=== PATIENT | female | born 1965 | race Caucasian/White ===

== ENCOUNTER 2018-05-25 16:45 | Emergency (ER) | payer OTHER ==
--- NOTE | 2018-05-25 17:21 | EDM.PDOC ---
ED HPI GENERAL MEDICAL PROBLEM - General Chief Complaint: Lower Extremity Injury/Pain Stated Complaint: L LEG PAIN/POSS BLOOD CLOT Time Seen by Provider: 05/25/18 17:07 Source of Information: Reports: Patient, RN Notes Reviewed History Limitations: Reports: No Limitations - History of Present Illness INITIAL COMMENTS - FREE TEXT/NARRATIVE: Patient is a 52 year old female who presents to the ED for the evaluation of a possible blood clot. The patient states that she has had a DVT in her Left leg around 28 years ago. She was on Coumadin for 2 years due to this. She has since stopped taking the Coumadin and is only taking a baby aspirin. She states that she is from [place], and is in [place] to visit her son. She notes that she has been traveling long hours in the car, up to 8-10 hours/day. She has been trying to do some calf pumps and exercises to prevent DVT but has not been able to do as many or as much as she'd like. Her left leg is swollen and painful in her calf and into the back of her knee. She denies any chest pain or shortness of breath. She states that she does not have a clotting disorder, or that she has never been tested for one. 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 CASH REGISTERS: tramadol Left Lower Leg Pain Score (Numeric/FACES): 10 - Related Data Allergies Allergy/AdvReac Type Severity Reaction Status Date / Time azithromycin [From Zithromax] Allergy Swelling Verified 05/25/18 17:14 cefaclor [From Ceclor] Allergy Swelling Verified 05/25/18 17:14 Cephalosporins Allergy Swelling Verified 05/25/18 17:14 Sulfa (Sulfonamide Allergy Swelling Verified 05/25/18 17:14 Antibiotics) Home Meds: Home Meds Apixaban [Eliquis] 5 mg PO BID #60 tablet 05/25/18 [Rx] Ondansetron [Zofran ODT] 4 mg PO Q6H PRN #28 tab.dis 05/25/18 [Rx] Past Medical History Cardiovascular History: Reports: Blood Clots/VTE/DVT, Hypertension Respiratory History: Reports: Asthma Gastrointestinal History: Reports: Cholelithiasis, GERD 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: Other (See Below) Other CRUSHER AND 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 OPERATOR History: right ovary cyst removed;left ovary removed Musculoskeletal History: Reports: Fibromyalgia Endocrine/Metabolic History: Reports: Diabetes, Type II Oncologic (Cancer) History: Reports: Thyroid Other Oncologic History: thyroid removed and on medication - Past Surgical History GI Surgical History: Reports: Appendectomy Female Surgical History: Reports: Hysterectomy Musculoskeletal Surgical History: Reports: Other (See Below) Other Musculoskeletal Surgeries/Procedures:: laminectomy of L4L5; back fusion of L4L5 Social & Family History - Tobacco Use Smoking Status *Q: Never Smoker - Caffeine Use Caffeine Use: Reports: Tea - Recreational Drug Use Recreational Drug Use: No Review of Systems - Review of Systems Review Of Systems: See Below Constitutional: Reports: No Symptoms Eyes: Reports: No Symptoms Ears: Reports: No Symptoms Nose: Reports: No Symptoms Mouth/Throat: Reports: No Symptoms Respiratory: Denies: Shortness of Breath, Pleuritic Chest Pain Cardiovascular: Denies: Chest Pain GI/Abdominal: Reports: No Symptoms Genitourinary: Reports: No Symptoms Musculoskeletal: Reports: Leg Pain (left calf with left leg swelling) Skin: Reports: No Symptoms Neurological: Reports: No Symptoms Psychiatric: Reports: No Symptoms ED EXAM, GENERAL - Physical Exam Exam: See Below Exam Limited By: No Limitations General Appearance: Alert, WD/WN, No Apparent Distress Eye Exam: Bilateral Eye: Normal Inspection Ears: Normal External Exam Nose: Normal Inspection Throat/Mouth: Normal Inspection, Normal Oropharynx, No Airway Compromise Head: Atraumatic, Normocephalic Neck: Normal Inspection Respiratory/Chest: No Respiratory Distress, Lungs Clear, Normal Breath Sounds, No Accessory Muscle Use, Chest Non-Tender Cardiovascular: Normal Peripheral Pulses, Regular Rate, Rhythm, No Murmur GI/Abdominal: Normal Bowel Sounds, Soft, Non-Tender, No Distention, No Mass Extremities: Livia's Sign (positive on left lower leg, she also has pain with dorsiflexion of left foot), Other (left leg is visibly one size larger than her right.). No: Mottled, Pallor Neurological: Alert, Oriented, Normal Cognition, No Motor/Sensory Deficits Psychiatric: Normal Affect, Normal Mood Skin Exam: Warm, Dry, Intact, Normal Color, No Rash Course - Vital Signs Last Recorded V/S: Last Vital Signs Temp 98.7 F 05/25/18 17:09 Pulse 104 H 05/25/18 17:09 Resp 20 05/25/18 17:09 BP 147/84 H 05/25/18 17:09 Pulse Ox 95 05/25/18 17:09 - Orders/Labs/Meds Orders: Active Orders 24 hr Category Date Time Status VL Duplex Lwr Ext Veins Ltd Lt [US] Stat Exams 05/25/18 17:23 Ordered Labs: Laboratory Tests 05/25/18 Range/Units 17:40 PT 9.8 (9.5-12.1) SECONDS INR < 0.93 APTT 25 (24-31) SECONDS D-Dimer, Quantitative 3.71 H (0.19-0.50) mg/L - Radiology Interpretation Free Text/Narrative:: Left lower extremity deep venous ultrasound: Duplex and color flow imaging was obtained of the left common femoral, proximal greater saphenous, superficial femoral, popliteal, posterior tibial and peroneal veins. Right common femoral vein was also evaluated. Comparison: No previous study available at this time. Findings: Small amount of intraluminal material is seen within the common femoral vein which is slightly echogenic likely due to recannulized chronic clot. Chronic clot is seen within the proximal superficial femoral artery. Obstructing chronic-appearing clot is noted within the mid and distal superficial femoral veins. Posterior tibial vein is patent. Peroneal vein was not visualized and likely is occluded with chronic clot. Left profunda vein is patent. Proximal left greater saphenous vein appears to be patent. Right common femoral vein is patent. Impression: 1. Abnormal study as described above having the appearance of chronic clot. No definite acute deep venous thrombosis is seen within the left lower extremity or right common femoral vein. - Re-Assessments/Exams Free Text/Narrative Re-Assessment/Exam: 05/25/18 18:00 Pt presents to the ED for a possible DVT in lower left leg. clinically she is positive for a DVT of her left leg. Have ordered PT/PTT/INR and D-dimer in evaluation, as well as an US of the left leg to see if we can see exactly where and how large her clot may be. She also states that is to have her Gallbladder out when she returns to [place]. I have offered a prescription of zofran ODT for the long car ride home, and also will start her on Eliquis 5mg BID. This was sent to [facility] in [place]. 05/25/18 18:17 D-dimer is back and is elevated at 3.71, which is consistent for a DVT. She is not having any respiratory symptoms at today's visit. CT angio will not be done at this time. 05/25/18 19:23 Her US is done and does demonstrate some abnormalities and noted in radiology section. Will send home copy of US report so that she may follow up when she gets home. 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 Your labs and studies do demonstrate that you have a chronic clot in your left leg. Please take the eliquis BID, and follow up with your primary care doctor when you return home. A copy of the US report has been provided. Please continue to do your calf pump exercises and try to increase activity during the long car rides. You may take the Zofran as directed for nausea due to gallstones. Please return to the ED if your symptoms change or worsen. - My Orders Last 24 Hours: My Active Orders 05/25/18 17:23 VL Duplex Lwr Ext Veins Ltd Lt [US] Stat - Assessment/Plan Last 24 Hours: My Active Orders 05/25/18 17:23 VL Duplex Lwr Ext Veins Ltd Lt [US] Stat
--- NOTE | 2018-05-25 21:01 | US ---
Left lower extremity deep venous ultrasound: Duplex and color flow imaging was obtained of the left common femoral, proximal greater saphenous, superficial femoral, popliteal, posterior tibial and peroneal veins. Right common femoral vein was also evaluated. Comparison: No previous study available at this time. Findings: Small amount of intraluminal material is seen within the common femoral vein which is slightly echogenic likely due to recannulized chronic clot. Chronic clot is seen within the proximal superficial femoral artery. Obstructing chronic-appearing clot is noted within the mid and distal superficial femoral veins. Posterior tibial vein is patent. Peroneal vein was not visualized and likely is occluded with chronic clot. Left profunda vein is patent. Proximal left greater saphenous vein appears to be patent. Right common femoral vein is patent. Impression: 1. Abnormal study as described above having the appearance of chronic clot. No definite acute deep venous thrombosis is seen within the left lower extremity or right common femoral vein. Diagnostic code #3
== END 2018-05-25 19:50 | disposition home or self-care (01) ==
LOC: JD.ED 16:45
DX: I82.502 Chronic embolism and thrombosis of unspecified deep veins of left lower extremity (principal); E11.9 Type 2 diabetes mellitus without complications; I10 Essential (primary) hypertension; J45.909 Unspecified asthma, uncomplicated; Z88.2 Allergy status to sulfonamides; Z88.0 Allergy status to penicillin
CPT/HCPCS: 36415; 85379; 85610; 85730; 93971-26-LT; 93971-LT; 99284; 99284-25